=== PATIENT | female | born 1950 | race Caucasian/White ===

== ENCOUNTER → 2016-11-05 | Outpatient (CLI) | payer MEDICARE ==
--- NOTE | 2016-11-05 17:02 | RADIOLOGY REPORT PS360 ---
US THYROID HISTORY: Thyromegaly, palpable amount of the thyroid gland with choking THYROMEGLY ORDERING PHYSICIAN: Sheron Ornelas MD PATIENT AGE: 66 years COMPARISON: None FINDINGS: The right lobe is 4 x 1.4 x 1 point. Multiple nodules are present including a 5 mm slightly hypoechoic nodule superiorly, 5 mm hypoechoic nodule inferiorly, 5 mm hypoechoic nodule inferiorly, 7 mm isoechoic nodule inferiorly. The left lobe is 4.1 x 1.3 x 1.8 cm. Nodules are present including a 3 mm hypoechoic nodules in the mid aspect of the left lobe and a 3 mm hypoechoic nodule inferiorly. The isthmus is thickened with a 4 mm hypoechoic nodule along the left aspect of the isthmus. The isthmus measures up to 5 mm in thickness. IMPRESSION: Nonspecific bilateral thyroid nodules which are low suspicion for malignancy. Six-month follow-up recommended
== END ==
LOC: RAD 10-29 13:30
DX: E01.0 Iodine-deficiency related diffuse (endemic) goiter (principal)